=== PATIENT | female | born 1965 | race Caucasian/White ===

== ENCOUNTER 2017-06-17 04:58 | Inpatient (IN) | payer OTHER ==
[2017-06-14 11:19] VITALS: BMI 37.8
[~2017-06-17 04:58] MED LIST: BACITRACIN 15 GM TUBE TOPICAL OINTMENT TP ONE
[2017-06-17] MEDS ORDERED: MIDAZOLAM HCL 2 MG/2 ML SINGLE DOSE VIAL ONE (08:01)
[2017-06-17] MEDS ORDERED: PROPOFOL 20 ML ONE ×22 (08:01→12:57)
[2017-06-17] MEDS ORDERED: ROCURONIUM BROMIDE 50 MG/5 ML VIAL ONE (08:02)
[2017-06-17] MEDS ORDERED: ceFAZolin SODIUM 1 GM VIAL IVPB ONE (08:24)
[2017-06-17] MEDS ORDERED: BACITRACIN 50,000 UNITS VIAL NR ONE (09:56)
[2017-06-17] MEDS ORDERED: THROMBIN (BOVINE) 5,000 UNIT VIAL TP ONE (09:56)
[2017-06-17] MEDS ORDERED: VANCOMYCIN 1,000 MG VIAL (RESTRICTED TO ID ONLY) ONE (11:33)
[2017-06-17] MEDS ORDERED: VANCOMYCIN 1 GRAM (PRE-DOCKED) 1,000 MG/250 ML BAG IVPB ONE (11:46)
[2017-06-17] MEDS ORDERED: ONDANSETRON 4 MG/2 ML VIAL ONE (13:00)
[2017-06-17] MEDS ORDERED: DEXAMETHASONE SOD PHOSPHATE 4 MG/1 ML VIAL ONE (13:00)
[2017-06-17] MEDS ORDERED: LIDOCAINE HCL 2% JELLY (5 ML/TUBE) ONE (13:00)
[2017-06-17] MEDS ORDERED: LIDOCAINE HCL/PF 2% SDV 5ML VIAL ONE (13:00)
[2017-06-17] MEDS ORDERED: SODIUM CHLORIDE 0.9% P/F 10 ML VIAL IJ ONE (13:00)
[2017-06-17] MEDS ORDERED: BACITRACIN 15 GM TUBE TOPICAL OINTMENT ONE (13:29)
[2017-06-17] MEDS ORDERED: ACETAMINOPHEN 325 MG TABLET (FP) PO PRN (13:34)
[2017-06-17] MEDS ORDERED: ONDANSETRON 4 MG/2 ML VIAL IVPUSH PRN (13:34)
[2017-06-17] MEDS ORDERED: BACITRACIN 15 GM TUBE TOPICAL OINTMENT TP ONE (13:40)
--- NOTE | 2017-06-17 13:45 | OP ---
Operative Note - Note: Operative Date: 06/17/17 Pre-Operative Diagnosis: L5-S1 instability; L4-5 prior fusion; lumbar radiculopathy Operation: Expansion of prior L5-S1 laminetomies; removal of L4-5 implants; reimplants L4-5-S1 including new S1 pedicle screws; interbody fusion B L5-S1; posterolateral fusion L4-5 and L5-S1; interbody 11x25 mm implants L5-S1; fluoroscopy; autologous bone grafts; microdissection Findings: Widened R L5-S1 facets; instability L5-S1; R L5-S1 synovial cyst; lateral recess stenosis B L5-S1; dense epidural fibrosis R L5-S1 Implants: Idiro Kayla 3 5.5x60 mm rods (cut and bent) and 7.5 x 40 mm B S1 screws; B L5-S1 11x25 corticocancellous bioprosthetic devices Surgeon: Kwan New Audio Tape Librarian: Wilberto Wang Anesthesiologist/INTERMEDIATE CARD TENDER: Tasha Spears MD Anesthesia: General Specimens Removed: L5-S1 disc Estimated Blood Loss (mls): 300 Drains & Tubes with Location: 10 flat BUDDY to epidural space
[2017-06-17] MEDS ORDERED: PREGABALIN PO SCH (14:00)
[2017-06-17] MEDS ORDERED: DEXAMETHASONE SOD PHOSPHATE 4 MG/1 ML VIAL IVPUSH PRN (14:08)
[2017-06-17] MEDS ORDERED: PROMETHAZINE HCL 25 MG/1 ML VIAL IVPB PRN (14:08)
[2017-06-17] MEDS ORDERED: LACTATED RINGERS SOLUTION 1,000 ML IV SCH (14:15)
[2017-06-17] MEDS: HYDROmorphone *PCA* 10MG/50ML DISP.SYRIN PCA SCH (14:20)
[2017-06-17] MEDS ORDERED: diazePAM 5 MG TABLET ONE (14:44)
--- NOTE | 2017-06-17 14:45 | PN ---
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
[2017-06-17] MEDS ORDERED: PREGABALIN 50 MG CAPSULE ONE (14:47)
[2017-06-17] MEDS: diazePAM 5 MG TABLET PO SCH ×2 (14:50→22:01)
[2017-06-17] MEDS ORDERED: PREGABALIN 100 MG CAPSULE PO SCH ×2 (15:05→22:00)
[2017-06-17] MEDS: D5-1/2NS+20 MEQ KCL - 1,000 ML IV SCH (15:30)
[2017-06-17 15:31] LABS: MCH 31.2 pg (25.7-33.7); MCHC 34.5 g/dl (32.0-36.0); MEAN CELL VOLUME 90.6 fl (80-96); MEAN PLT VOLUME 8.1 fl (7.5-11.1); PLATELET COUNT 208 K/MM3 (134-434); RDW 13.5 % (11.6-15.6); WHITE BLOOD COUNT 6.8 K/mm3 (4.0-10.0)
[2017-06-17 15:53] LABS: ANION GAP 8 (8-16); CALCIUM 8.1 mg/dL (8.5-10.1); CO2 30 mmol/L (21-32); CREATININE 0.6 mg/dL (0.55-1.02); GLUCOSE,RANDOM 127 mg/dL (74-106)
[2017-06-17] MEDS ORDERED: ceFAZolin SODIUM 1 GM VIAL ONE (17:07)
[2017-06-17] MEDS: CEFAZOLIN 1 GM/D5W 50 ML IVPB SCH (17:10)
[2017-06-17] MEDS ORDERED: DEXAMETHASONE SOD PHOSPHATE 4 MG/1 ML VIAL IVPUSH ONE (21:00)
[2017-06-17] MEDS ORDERED: QUEtiapine FUMARATE 100 MG TABLET (FP) ONE (21:08)
[2017-06-17] MEDS: PREGABALIN 50 MG CAPSULE PO SCH (22:01)
[2017-06-17] MEDS: DOCUSATE SODIUM 100 MG CAPSULE (FP) PO SCH (22:02)
[2017-06-17] MEDS: QUEtiapine FUMARATE 300 MG TABLET PO SCH (22:03)
[2017-06-18] MEDS: CEFAZOLIN 1 GM/D5W 50 ML IVPB SCH ×3 (02:01→16:01)
[2017-06-18] MEDS: D5-1/2NS+20 MEQ KCL - 1,000 ML IV SCH ×3 (03:24→16:01)
[2017-06-18] MEDS: diazePAM 5 MG TABLET PO SCH ×3 (06:12→21:34)
[2017-06-18] MEDS: DOCUSATE SODIUM 100 MG CAPSULE (FP) PO SCH ×3 (06:12→21:34)
[2017-06-18] MEDS: PREGABALIN 50 MG CAPSULE PO SCH ×3 (06:12→21:34)
[2017-06-18] MEDS ORDERED: PNEUMOC 13-VAL CONJ-DIP CRM/PF 0.5 ML DISP.SYRIN IM ONE (07:16)
--- NOTE | 2017-06-18 07:27 | PN ---
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
--- NOTE | 2017-06-18 08:08 | PN ---
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
[2017-06-18] MEDS ORDERED: PT OWN MED DRAWER 7, Y5N ONE (09:16)
[2017-06-18] MEDS: CHLORTHALIDONE 25 MG TABLET PO SCH (09:18)
[2017-06-18] MEDS: buPROPion HCL 75 MG TABLET PO SCH (09:19)
[2017-06-18] MEDS: FLUoxetine HCL 20 MG CAPSULE (FP) PO SCH (09:19)
[2017-06-18] MEDS ORDERED: PATIENT'S OWN MEDICATION (NON-FORMULARY) (Fluticasone/Vilanterol [Breo Ellipta 200-25 Mcg IH SCH (10:00)
[2017-06-18] MEDS ORDERED: FLU VACCINE QUAD 60 MCG/0.5 ML (MDV 17-18) IM ONE (10:00)
[2017-06-18] MEDS ORDERED: PNEUMOCOCCAL 23 VACCINE 0.5 ML VIAL IM ONE (14:00)
[2017-06-18] MEDS ORDERED: HYDROmorphone *PCA* 10MG/50ML DISP.SYRIN PCA ONE (15:16)
[2017-06-18] MEDS: HYDROmorphone *PCA* 10MG/50ML DISP.SYRIN PCA SCH (15:27)
[2017-06-18] MEDS: MOMETASONE FUROATE 110 MCG/IH INHALER IH SCH (15:58)
[2017-06-18] MEDS: oxyCODONE HCL 5 MG TABLET PO PRN (16:07)
[2017-06-18] MEDS ORDERED: QUEtiapine FUMARATE 100 MG TABLET (FP) ONE (21:32)
[2017-06-18] MEDS: QUEtiapine FUMARATE 300 MG TABLET PO SCH (21:36)
[2017-06-19] MEDS: CEFAZOLIN 1 GM/D5W 50 ML IVPB SCH ×3 (01:13→17:05)
[2017-06-19] MEDS: D5-1/2NS+20 MEQ KCL - 1,000 ML IV SCH ×2 (01:23→13:02)
[2017-06-19] MEDS: oxyCODONE HCL 5 MG TABLET PO PRN ×2 (04:22→21:35)
[2017-06-19] MEDS: DOCUSATE SODIUM 100 MG CAPSULE (FP) PO SCH ×3 (05:19→22:05)
[2017-06-19] MEDS: diazePAM 5 MG TABLET PO SCH ×3 (05:19→22:04)
[2017-06-19] MEDS: PREGABALIN 50 MG CAPSULE PO SCH ×3 (05:20→22:03)
--- NOTE | 2017-06-19 08:15 | PN ---
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
--- NOTE | 2017-06-19 08:36 | OP ---
DATE OF OPERATION: 06/22/2017 PREOPERATIVE DIAGNOSES: 1. L5-S1 spondylolisthesis with segmental instability. 2. Prior L4-5 fusion x2. 3. Chronic, intractable lower back pain and lumbar radiculopathy. POSTOPERATIVE DIAGNOSES: 1. L5-S1 spondylolisthesis with segmental instability. 2. Prior L4-5 fusion x2. 3. Chronic, intractable lower back pain and lumbar radiculopathy. ATTENDING SURGEON: Kwan New MD AUTOMATIC OPERATOR: Wilberto Wang MD ANESTHESIA: General endotracheal. ANESTHESIOLOGIST: Tasha Spears MD ESTIMATED BLOOD LOSS: 300 mL. PROCEDURES: 1. Re-do bilateral L5 and S1 laminectomy for decompression of the thecal sac as well as bilateral L5 and S1 nerve roots and L5-S1 diskectomy bilaterally (00862-98-69 , 63682-73). 2. Removal of prior L4-5 instrumentation (34195). 3. Microsurgical dissection (76843). 4. Interbody and posterolateral fusion at L5-S1 (06596). 5. Posterolateral fusion L4-5 after takedown of prior L4-5 fusion mass (06708- 21). 6. Posterior lumbar segmental fixation system placement with a combination of prior Depuy Expedium titanium system and new [place] implants at S1 with Kayla 3 titanium system (38712-95). 7. Bilateral L5-S1 interbody implants with 11 x 25-mm bioprosthetic devices ( 23181). 8. [place] autologous laminar and facet bone and bone dust for interbody and posterolateral fusion (80693). 9. Intraoperative fluoroscopy for localization and pedicle screw fixation placement (31349-48). FINDINGS: 1. Dense epidural fibrosis right L5-S1. 2. Segmental instability L5-S1. 3. Delayed SSEP baseline signal, bilateral lower extremity. INDICATIONS: The patient is a 51-year-old female with intractable recurrent lower back pain and bilateral lumbar radiculopathy, right greater than left. Because of intractable symptoms and failure of conservative treatment, she is consented for extension of her prior lumbar fusion from L4-5 to L5-S1. Her preoperative CT scan demonstrated widening of the facet joint at L5-S1 as well as spondylolisthesis. There was also lateral recess stenosis. The patient understands the indication for the procedure, the procedure in detail, risks and benefits, and alternatives for treatment of her lumbar condition and wished to proceed. She understands the risks of the surgery to include but not limited to bleeding, infection, dural tear with CSF leak, neurological injury including thromboembolic risk and other risks of general anesthesia. Because of the re-do nature of the surgery, the risks are higher. No guarantee was given for a favorable outcome. Intraoperatively SSEP and EMG signals were monitored. PROCEDURE IN DETAIL: After the patient was taken to the operating room, she was placed in a supine position. After general anesthesia was induced and appropriate monitoring lines were placed, a Rojas catheter was also inserted. At this point , the patient was turned in a prone position on a Sergio frame. All pressure points were checked and padded. The prior lumbar incision was used. This was after localization x-ray was obtained with a spinal needle in place. Subperiosteal dissection was carried out from L3 to S1. This was carried out bilaterally. Dense paraspinal fibrosis was noted. Two self-retaining retractors were inserted. Another localization x-ray was obtained after the pedicle screw was localized on the right at L5. After the position was verified, the prior pedicle screw system at L4-5 was skeletonized with the combination of sharp and blunt dissection. The right L5- S1 facet joint was noted to be widened, and a synovial cyst was excised and sent for pathology analysis. The L5 segment was hypermobile at this point, even prior to laminectomy. The superior infraspinatus ligament at L5-S1 was resected, and the lamina was removed with a combination of high-speed pneumatic drill, angled curette, and Kerrison rongeur. Lysis of adhesions was carried out to prevent any injury to the dura. Meticulous dissection was carried out. Facetectomy was also carried out in order to gain access to the lateral recess. Epidural hemostasis was obtained using bipolar electrocautery and thombin-soaked powder Gelfoam. At this point, under gentle retraction of the left S1 nerve root, this annulus was lysed with a No. 15 blade. This was done under microsurgical dissection with operative microscope. The disk annulus was incised, and the disk material was removed with a pituitary rongeur. Serially larger disk space scraper was used from 6-11 mm. A 12-mm interbody distractor was placed. Attention was then turned to the right side of the disk space where dense epidural fibrosis was encountered. No nerve root retraction was carried out because of dense fibrosis. Disk annulus was incised with a No. 15 blade, and the serially larger disk space scraper was used from 7-11 mm similarly on the right side. Disk material was removed. Side cutting as well as downgoing as well as straight curettes were used to create a path to the interbody implant. An 11 x 25-mm interbody implant was inserted and countersunk by about 7 x 8 mm. Attention was then turned to the left side interspace, and the distractor was removed. The central portion of the disk material was removed with downgoing curette and upgoing pituitary rongeur. The disk space was similarly prepared on the left side. The central portion of the disk space was packed with autologous morselized bone graft and bone dust, which was harvested earlier during the decompression. Another 11 x 25-mm body implant was inserted and countersunk by about 7 mm. At this point, the fluoroscope was brought into the AP position to ascertain the patient was in true AP position, then fluoroscope was turned into lateral position and sterilely draped. The entry point of pedicle screws was marked with high-speed pneumatic drill, and the screw hole was first awled and then tapped; 7.5 x 40-mm screws were used in S1 bilaterally. The prior pedicle locking screws were removed at L4 and L5 as well as a miguel connecting the screw. Significant dissection to take down the lateral bone mass was needed in order to expose the instrumentation system adequately as well as to remove it. This was done bilaterally. Osteotome use was needed to mobilize the miguel as well as the fusion bone mass. Attempts to remove the primary pedicle screws were not successful. It was decided to leave these screws in place as a result. The scar tissue in and around the screws was removed with a sterile rongeur. A tapered 5.5 mm miguel was cut to about 60 mm for each side and then bent to be placed over the rods. The prior locking screws were used at L4 and L5. A new half- inch screw with the [place] system was used at S1. This procedure was repeated on the left -hand side. Torque and counter-torque wrench tightening was used for bilateral S1 screws and L4/L5 locking screws were reused for manual tightening at L4 and L5. The EMG threshold with the bilateral S1 pedicle screws was greater than 20 mA. The L4 and L5 locking screws were hand tightened. At this point, the wound was irrigated using bacitracin continuous irrigation throughout the case. Another 1 L of vancomycin continuous irrigation was used because of the re-do nature of the surgery. The dura was protected throughout. Because of the takedown of the prior fusion at L4-5, posterolateral fusion at L4-5 in addition to L5-S1 was carried out after the posterolateral surface of the vertebra was decorticated with high-speed pneumatic drill. Final AP and lateral fluoroscopic images demonstrated satisfactory position of the implants. The patient tolerated the procedure well. At this point, 2 layers of Surgicel were laid in the epidural space at the L5-S1 level. The L5 and S1 nerve roots were both decompressed through the re-do laminectomies bilaterally at L5 and S1. A 10 flat BUDDY drain was inserted, which came out through a separate stab incision on the left side. Dorsal lumbar musculature and fascia were closed with a 0 Vicryl suture. Subcutaneous fascia was closed with 3-0 Vicryl suture. The skin was closed with a 4-0 Vicryl running subcuticular suture. Steri-Strips and a sterile occlusive dressing were applied. The patient tolerated the procedure well and was turned back to the supine position. She was moving bilateral lower extremities well. Intraoperative SSEP and EMG signals were stable throughout. The patient received 1 g of Ancef prior to the incision. The OR timeout procedure was followed. All needle and lap counts were correct. The patient and the patient's were both updated as to the intraoperative findings. Dr. Wang, the psychological assistant surgeon provided the necessary irrigation and retraction service. He was present during the entire procedure. Annette [id number] cc: Wilberto Wagn MD [facility]
[2017-06-19] MEDS ORDERED: PT OWN MED DRAWER 7, Y5N ONE (09:18)
[2017-06-19] MEDS: buPROPion HCL 75 MG TABLET PO SCH (09:21)
[2017-06-19] MEDS: FLUoxetine HCL 20 MG CAPSULE (FP) PO SCH (09:21)
[2017-06-19] MEDS: CHLORTHALIDONE 25 MG TABLET PO SCH (09:21)
[2017-06-19] MEDS: MOMETASONE FUROATE 110 MCG/IH INHALER IH SCH (09:22)
--- NOTE | 2017-06-19 10:46 | PN ---
Progress Note (short form) - Note Progress Note: NEUROSURGERY POD #2 Incisional pain Given decadron x1 Tmax 99.9, AF, VSS Drain appears plugged PE: Slightly drowsy; following commands CV- RR; Lungs- CTA B; Abd- benign; Ext- no sign of DVT CN- intact; Motor- B UE and LE at least 4- pain limited; Sensation- intact LT Incision with some serosangrenous drainage valium for muscle spasm Findings d/w patient again D/C drain New dressing applied with RN; observe wound; change dressing PRN Postop pain control will be difficult due to tolerance to narcotics OOB with LSO brace Cont iv abx given drainage and low grade temp D/C Rojas Cont ASTRONOMY PROFESSOR for 24 hours more if possible
[2017-06-19] MEDS ORDERED: HYDROmorphone HCL CARPU-JECT 1 MG/1 ML DISP.SYRIN IVPB PRN (10:51)
[2017-06-19] MEDS ORDERED: HYDROmorphone *PCA* 10MG/50ML DISP.SYRIN PCA ONE (14:58)
[2017-06-19] MEDS: HYDROmorphone *PCA* 10MG/50ML DISP.SYRIN PCA SCH (15:06)
[2017-06-19] MEDS ORDERED: QUEtiapine FUMARATE 100 MG TABLET (FP) ONE (21:48)
[2017-06-19] MEDS: QUEtiapine FUMARATE 300 MG TABLET PO SCH (22:05)
[2017-06-20] MEDS: D5-1/2NS+20 MEQ KCL - 1,000 ML IV SCH ×4 (01:47→19:33)
[2017-06-20] MEDS: CEFAZOLIN 1 GM/D5W 50 ML IVPB SCH ×3 (01:48→19:14)
[2017-06-20] MEDS: DOCUSATE SODIUM 100 MG CAPSULE (FP) PO SCH ×4 (05:43→21:36)
[2017-06-20] MEDS: PREGABALIN 50 MG CAPSULE PO SCH ×3 (05:43→21:36)
[2017-06-20] MEDS: oxyCODONE HCL 5 MG TABLET PO PRN ×4 (05:44→21:35)
[2017-06-20] MEDS: diazePAM 5 MG TABLET PO SCH ×3 (05:44→21:36)
--- NOTE | 2017-06-20 07:26 | PN ---
Progress Note (short form) - Note Progress Note: NEUROSURGERY POD #3 Incisional pain brace fits well Able to void Tmax 99.5 now 98.3, AF, VSS PE: A/A; following commands CV- RR; Lungs- CTA B; Abd- benign; Ext- no sign of DVT CN- intact; Motor- B UE and LE at least 4+ pain limited; Sensation- intact LT Incision with some serosangrenous drainage from drain site valium for muscle spasm New dressing applied Postop pain control will continue to be difficult due to tolerance to narcotics OOB with LSO brace Cont iv abx given drainage Observe temp Labs pending Cont CORN LAB TECHNICIAN for 24 hours more if possible (given penitentiary narcotic painkiller use)
[2017-06-20 08:39] LABS: BASOPHIL 0.4 % (0-2.0); EOSINOPHIL 0.9 % (0-4.5); MCH 30.9 pg (25.7-33.7); MCHC 34.6 g/dl (32.0-36.0); MEAN CELL VOLUME 89.2 fl (80-96); MEAN PLT VOLUME 8.1 fl (7.5-11.1); NEUTROPHILS 70.4 % (42.8-82.8); PLATELET COUNT 214 K/MM3 (134-434); RDW 13.1 % (11.6-15.6); WHITE BLOOD COUNT 8.7 K/mm3 (4.0-10.0)
[2017-06-20] MEDS ORDERED: PT OWN MED DRAWER 7, Y5N ONE (09:10)
[2017-06-20] MEDS: buPROPion HCL 75 MG TABLET PO SCH (10:19)
[2017-06-20] MEDS: FLUoxetine HCL 20 MG CAPSULE (FP) PO SCH (10:19)
[2017-06-20] MEDS: CHLORTHALIDONE 25 MG TABLET PO SCH (10:19)
[2017-06-20] MEDS: MOMETASONE FUROATE 110 MCG/IH INHALER IH SCH (10:20)
--- NOTE | 2017-06-20 11:03 | PATH ---
Surgical Pathology Report Patient Name: KOFFI TRIPLETT Med. Rec. #: [id number] /Age/Gender: 1965 (Age: 51) / F Account: [id number] Location: [facility] MED/SURG Taken: 06/17/2017 Received: 06/18/2017 Reported: 06/20/2017 Physicians: Kwan New M.D. Specimen(s) Received A: EXPLANT HARDWARE L4-5 B: L5-S1 DISC C: SYNOVIAL CYST RIGHT L5-S1 Clinical History Post laminectomy syndrome, lumbar radiculopathy Final Diagnosis A. HARDWARE, L4-5, REMOVAL: SURGICAL HARDWARE. MACROSCOPIC DIAGNOSIS. B. L5-S1 DISC, LAMINECTOMY: FRAGMENTS OF FIBROCARTILAGINOUS TISSUE. C. L5-S1, RIGHT, SYNOVIAL CYST, EXCISION: FIBROMEMBRANOUS SOFT TISSUE CONSISTENT WITH CYST LINING. Electronically Signed Alba Benavides M.D. Gross Description A. Received fresh labeled "explant hardware L4-5," are 2 tamayo metallic rods averaging 3.4 cm in length and 0.5 cm in diameter. No soft tissue is present. No sections are submitted, gross only. B. Received in formalin labeled "L5-S1 disc," is a 4.7 x 3.4 x 0.8 cm aggregate of cruz fragments of fibrocartilaginous tissue. A sales representative trainee portion is submitted in one cassette. C. Received in formalin labeled "synovial cyst right L5-S1," is a 0.9 x 0.7 x 0.4 cm cruz, irregular portion of soft tissue, possibly consistent with a cyst. The specimen is bisected and entirely submitted in one cassette. 06/18/201706/18/2017
--- NOTE | 2017-06-20 14:53 | PN ---
Progress Note (short form) - Note Progress Note: Anesthesia/pain management follow up POD#3 dilaudid stem lead former, pain fairly well controlled, patient using the stem lead former, will continue today. Will reassess tomorrow.
[2017-06-20] MEDS: HYDROmorphone *PCA* 10MG/50ML DISP.SYRIN PCA SCH (15:48)
[2017-06-20] MEDS ORDERED: QUEtiapine FUMARATE 100 MG TABLET (FP) ONE (21:33)
[2017-06-20] MEDS: QUEtiapine FUMARATE 300 MG TABLET PO SCH (21:36)
[2017-06-21] MEDS: CEFAZOLIN 1 GM/D5W 50 ML IVPB SCH ×3 (03:03→17:42)
[2017-06-21] MEDS: oxyCODONE HCL 5 MG TABLET PO PRN ×4 (04:36→19:48)
[2017-06-21] MEDS: DOCUSATE SODIUM 100 MG CAPSULE (FP) PO SCH ×3 (05:39→21:18)
[2017-06-21] MEDS: PREGABALIN 50 MG CAPSULE PO SCH ×3 (05:39→21:20)
[2017-06-21] MEDS: diazePAM 5 MG TABLET PO SCH ×3 (05:39→21:17)
[2017-06-21] MEDS: D5-1/2NS+20 MEQ KCL - 1,000 ML IV SCH ×2 (07:20→08:54)
--- NOTE | 2017-06-21 08:07 | PN ---
Progress Note (short form) - Note Progress Note: Anesthesia POD#4 ON Dilaudid SOCIAL ORGANIZATION PROFESSOR. Patient is comfortable and sleepy. Discontinue the SOCIAL ORGANIZATION PROFESSOR. oral pain medisons are sufficient. Sarah Bledsoe MD.
--- NOTE | 2017-06-21 08:13 | PN ---
Progress Note (short form) - Note Progress Note: NEUROSURGERY POD #4 Incisional pain brace fits well Able to void Tmax 98.9, AF, VSS PE: A/A; following commands CV- RR; Lungs- CTA B; Abd- benign; Ext- no sign of DVT CN- intact; Motor- B UE and LE at least 4+ pain limited; Sensation- intact LT Incision with minimal serosangrenous drainage from prior drain site valium for muscle spasm WBC 8.7, Hgb 10.7 Postop pain control will continue to be difficult due to tolerance to narcotics OOB with LSO brace Cont iv abx given drainage D/C iv abx later if afebrile and no drainage Observe temp Off IDENTIFIER HORSE, on Nucynta/Ocycodone prn
[2017-06-21] MEDS: TAPENTADOL HCL 200 MG PO SCH ×2 (08:37→08:38)
[2017-06-21] MEDS: TAPENTADOL HYDROCHLORIDE 50 MG TABLET PO PRN ×3 (09:00→21:17)
[2017-06-21] MEDS ORDERED: MAGNESIUM CITRATE 300 ML BOTTLE PO ONE (09:00)
[2017-06-21] MEDS ORDERED: PT OWN MED DRAWER 7, Y5N ONE (09:19)
[2017-06-21] MEDS: buPROPion HCL 75 MG TABLET PO SCH (09:29)
[2017-06-21] MEDS: MOMETASONE FUROATE 110 MCG/IH INHALER IH SCH (09:29)
[2017-06-21] MEDS: CHLORTHALIDONE 25 MG TABLET PO SCH (09:29)
[2017-06-21] MEDS: FLUoxetine HCL 20 MG CAPSULE (FP) PO SCH (09:29)
[2017-06-21] MEDS ORDERED: MAGNESIUM CITRATE 300 ML BOTTLE PO PRN (13:00)
[2017-06-21] MEDS ORDERED: QUEtiapine FUMARATE 100 MG TABLET (FP) ONE (20:51)
[2017-06-21] MEDS: QUEtiapine FUMARATE 300 MG TABLET PO SCH (21:16)
[2017-06-22] MEDS: HYDROmorphone HCL CARPU-JECT 2 MG/1 ML DISP.SYRIN IVPB PRN ×4 (01:12→21:18)
[2017-06-22] MEDS: CEFAZOLIN 1 GM/D5W 50 ML IVPB SCH ×3 (01:12→17:16)
[2017-06-22] MEDS: PREGABALIN 50 MG CAPSULE PO SCH ×3 (06:23→21:16)
[2017-06-22] MEDS: diazePAM 5 MG TABLET PO SCH ×3 (06:23→21:16)
[2017-06-22] MEDS: DOCUSATE SODIUM 100 MG CAPSULE (FP) PO SCH ×3 (06:23→21:14)
[2017-06-22] MEDS: TAPENTADOL HYDROCHLORIDE 50 MG TABLET PO PRN ×3 (08:18→21:14)
--- NOTE | 2017-06-22 09:33 | PN ---
Progress Note (short form) - Note Progress Note: NEUROSURGERY POD #5 Incisional pain brace fits well Sleepy, just received pain meds Tmax 98.6, AF, VSS PE: A/A; following commands CV- RR; Lungs- CTA B; Abd- benign; Ext- no sign of DVT CN- intact; Motor- B UE and LE at least 4+ pain limited; Sensation- intact LT Incision with minimal serosangrenous drainage from prior drain site valium for muscle spasm - decrease dosage Postop pain control difficult due to tolerance to narcotics OOB with LSO brace Cont iv abx given drainage D/C iv abx Observe temp on Nucynta/Oxycodone prn and valium Cont bowel regimen Incentive spirometry
[2017-06-22] MEDS ORDERED: PT OWN MED DRAWER 7, Y5N ONE (09:34)
[2017-06-22] MEDS: CHLORTHALIDONE 25 MG TABLET PO SCH (09:38)
[2017-06-22] MEDS: buPROPion HCL 75 MG TABLET PO SCH (09:38)
[2017-06-22] MEDS: FLUoxetine HCL 20 MG CAPSULE (FP) PO SCH (09:38)
[2017-06-22] MEDS: MOMETASONE FUROATE 110 MCG/IH INHALER IH SCH (09:40)
[2017-06-22] MEDS: BISACODYL 10 MG SUPP.RECT RC PRN (12:12)
[2017-06-22] MEDS ORDERED: QUEtiapine FUMARATE 100 MG TABLET (FP) ONE (21:07)
[2017-06-22] MEDS: D5-1/2NS+20 MEQ KCL - 1,000 ML IV SCH (21:13)
[2017-06-22] MEDS: QUEtiapine FUMARATE 300 MG TABLET PO SCH (21:16)
[2017-06-23] MEDS: HYDROmorphone HCL CARPU-JECT 2 MG/1 ML DISP.SYRIN IVPB PRN ×4 (02:01→21:44)
[2017-06-23] MEDS: TAPENTADOL HYDROCHLORIDE 50 MG TABLET PO PRN ×3 (02:02→19:20)
[2017-06-23] MEDS: PREGABALIN 50 MG CAPSULE PO SCH ×3 (06:31→21:43)
[2017-06-23] MEDS: DOCUSATE SODIUM 100 MG CAPSULE (FP) PO SCH ×3 (06:31→21:42)
[2017-06-23] MEDS: diazePAM 5 MG TABLET PO SCH ×3 (06:31→21:43)
--- NOTE | 2017-06-23 08:37 | PN ---
Progress Note (short form) - Note Progress Note: NEUROSURGERY POD #6 Incisional pain brace fits well Sleepy, just received pain meds Tmax 98.9, AF, VSS PE: A/A; following commands CV- RR; Lungs- CTA B; Abd- benign; Ext- no sign of DVT CN- intact; Motor- B UE and LE at least 4+ pain limited; Sensation- intact LT Incision with no drainage from prior drain site- some skin irritation from adhesive on bottom valium for muscle spasm - decreased dosage yesterday Postop pain control difficult due to tolerance to narcotics OOB with LSO brace Observe temp/incision on Nucynta/Oxycodone prn and valium Cont bowel regimen Incentive spirometry Home VNS
[2017-06-23] MEDS: D5-1/2NS+20 MEQ KCL - 1,000 ML IV SCH (10:25)
[2017-06-23] MEDS: FLUoxetine HCL 20 MG CAPSULE (FP) PO SCH (10:29)
[2017-06-23] MEDS: CHLORTHALIDONE 25 MG TABLET PO SCH (10:29)
[2017-06-23] MEDS: MOMETASONE FUROATE 110 MCG/IH INHALER IH SCH (10:30)
[2017-06-23] MEDS: buPROPion HCL 75 MG TABLET PO SCH (10:30)
[2017-06-23] MEDS ORDERED: BISACODYL 5 MG TABLET.DR (FP) PO ONE (11:00)
[2017-06-23] MEDS: BISACODYL 10 MG SUPP.RECT RC PRN (17:28)
[2017-06-23] MEDS ORDERED: QUEtiapine FUMARATE 100 MG TABLET (FP) ONE (21:03)
[2017-06-23] MEDS: QUEtiapine FUMARATE 300 MG TABLET PO SCH (21:42)
[2017-06-24] MEDS: TAPENTADOL HYDROCHLORIDE 50 MG TABLET PO PRN ×2 (03:35→10:05)
[2017-06-24] MEDS: PREGABALIN 50 MG CAPSULE PO SCH ×2 (06:30→13:45)
[2017-06-24] MEDS: diazePAM 5 MG TABLET PO SCH ×2 (06:30→13:45)
[2017-06-24] MEDS: DOCUSATE SODIUM 100 MG CAPSULE (FP) PO SCH ×2 (06:30→13:45)
[2017-06-24] MEDS: HYDROmorphone HCL CARPU-JECT 2 MG/1 ML DISP.SYRIN IVPB PRN ×2 (06:31→13:37)
--- NOTE | 2017-06-24 08:42 | PN ---
Progress Note (short form) - Note Progress Note: NEUROSURGERY POD #7 Incisional pain brace fits well Sleepy, easily arousable AF, VSS PE: A/A; following commands CV- RR; Lungs- CTA B; Abd- benign; Ext- no sign of DVT CN- intact; Motor- B UE and LE at least 4+ pain limited; Sensation- intact LT Incision with no drainage from prior drain site- dressing fell off OOB with LSO brace Observe temp/incision on Nucynta/Oxycodone prn Cont bowel regimen Incentive spirometry Home VNS
[2017-06-24] MEDS ORDERED: PT OWN MED DRAWER 7, Y5N ONE (09:55)
[2017-06-24] MEDS: CHLORTHALIDONE 25 MG TABLET PO SCH (09:59)
[2017-06-24] MEDS: buPROPion HCL 75 MG TABLET PO SCH (09:59)
[2017-06-24] MEDS: FLUoxetine HCL 20 MG CAPSULE (FP) PO SCH (10:00)
[2017-06-24] MEDS ORDERED: BISACODYL 10 MG SUPP.RECT RC ONE (10:00)
[2017-06-24] MEDS: MOMETASONE FUROATE 110 MCG/IH INHALER IH SCH (10:00)
[2017-06-24] MEDS: D5-1/2NS+20 MEQ KCL - 1,000 ML IV SCH (13:46)
[2017-06-24 14:30] VITALS: BP 134/89; PULSE 87; TEMP 98
== END 2017-06-24 16:51 | disposition home health service (06) | DRG 304 ==
LOC: JSAMEDAYSX 04:58 → EDSTATUS 08:00 → J8W 17:31
PROVIDERS: ADMIT Neurological Surgery; ATTEND Neurological Surgery
PROC: 0ST40ZZ Resection of Lumbosacral Disc, Open Approach (ICD-10-PCS; principal; 2017-06-22)
PROC: 0SG30AJ Fusion of Lumbosacral Joint with Interbody Fusion Device, Posterior Approach, Anterior Column, Open Approach (ICD-10-PCS; 2017-06-22)
PROC: 00NY0ZZ Release Lumbar Spinal Cord, Open Approach (ICD-10-PCS; 2017-06-22)
PROC: 0SP303Z Removal of Infusion Device from Lumbosacral Joint, Open Approach (ICD-10-PCS; 2017-06-22)
DX: M43.17 Spondylolisthesis, lumbosacral region (principal)
CPT/HCPCS: 36415; 72100-TC; 76000-TC; 80048; 80051; 85025; 85027; 86850; 86900; 86901; 88300-TC; 88304-TC; 90688; 90732; 94760; 97116-GP; 97161-GP; G0008; G0009